=== PATIENT | male | born 1950 | race Two or more races ===

== ENCOUNTER 2023-01-19 11:47 | Emergency (ER) | payer SELFPAY ==
[~2023-01-19] VITALS: Ht 165.1 cm; Wt 83.7 kg
[2023-01-19] MEDS ORDERED: HYDR-4902 PO (14:26)
[2023-01-19 14:30] VITALS: BP 131/85
[2023-01-19] MEDS ORDERED: HYDROcodone-ACET 5/325MG TAB PO ONE (14:30)
== END 2023-01-19 15:12 | disposition home or self-care (01) ==
LOC: ER 11:47
DX: S22.32XA Fracture of one rib, left side, initial encounter for closed fracture (principal); W01.0XXA Fall on same level from slipping, tripping and stumbling without subsequent striking against object, initial encounter; Y93.89 Activity, other specified; Y92.89 Other specified places as the place of occurrence of the external cause; Y99.8 Other external cause status
CPT/HCPCS: 71101